=== PATIENT | female | born 1990 | race Caucasian/White ===

== ENCOUNTER → 2020-05-25 11:18 | Observation (INO) | END | disposition home or self-care (01) | LOC: 1NENULAB | PROVIDERS: ADMIT Advanced Practice Midwife; ATTEND Advanced Practice Midwife ==

== ENCOUNTER 2020-10-13 05:32 | Inpatient (IN) ==
[2020-10-13] MEDS ORDERED: Famotidine 20 MG/2 ML VIAL IVP PRN (05:47)
[2020-10-13] MEDS ORDERED: Metoclopramide 10 MG/2 ML VIAL IVP PRN ×2 (05:47→11:17)
[2020-10-13] MEDS ORDERED: Naloxone 0.4 MG/ML INJ IVP PRN (05:47)
[2020-10-13] MEDS ORDERED: ceFAZolin 2,000 MG in 0.9 % Sodium Chloride 100 ML IVPB ONE (05:50)
[2020-10-13] MEDS: Ringers Solution, Lactated 1,000 ML IVC SCH ×2 (06:13→07:43)
[2020-10-13 06:26] LABS: Basophils # 0.1 K/mcL (0.0-0.2); Basophils % 0.5 %; Eosinophils # 0.2 K/mcL (0.0-0.6); Hematocrit 35.9 % (35.3-44.9); Hemoglobin 11.5 g/dL (11.5-15.4); Lymphocytes % 24.3 %; Mean Corpuscular Hemoglobin 29.2 pg (28.0-33.3); Mean Corpuscular Volume 91.1 fL (83.0-100.0); Mean Platelet Volume 8.6 fL (9.4-12.4); Monocytes % 5.9 %; Platelet Count 376 K/mcL (140-400); Red Blood Count 3.94 M/mcL (3.82-4.97); Red Cell Distribution Width 13.2 % (11.5-14.5); Segmented Neutrophils % 67.3 %; White Blood Count 16.4 K/mcL (4.3-11.1)
[2020-10-13] MEDS ORDERED: *HR* FentaNYL (PF) 100 MCG/2 ML VIAL IVP PRN (07:36)
[2020-10-13] MEDS ORDERED: Promethazine 6.25 MG in Water for inj. (sterile) 20 ML IVPB PRN (07:36)
[2020-10-13] MEDS ORDERED: *HR* OxyCODONE Immed Rel 5 MG TABLET PO PRN ×2 (07:36→11:17)
[2020-10-13] MEDS ORDERED: *HR* Phenylephrine 10 MG/ML VIAL ONE (07:45)
[2020-10-13] MEDS ORDERED: Ondansetron 4 MG/2 ML VIAL ONE (07:45)
[2020-10-13] MEDS ORDERED: Oxytocin 20 units/ LR 1000 mL 20 UNIT/1,000 ML BAG IVC ONE ×2 (07:50→09:04)
[2020-10-13] MEDS ORDERED: Acetaminophen IV 1,000 MG/100 ML BAG IVPB ONE (08:54)
[2020-10-13] MEDS ORDERED: Lidocaine -MPF 1% 5 ML AMPUL ONE (09:19)
[2020-10-13] MEDS ORDERED: Bupivacaine-MPF 0.25% 10 ML VIAL ONE (09:19)
[2020-10-13] MEDS ORDERED: Ropivacaine/PF 0.2% 20 ML VIAL ONE (09:19)
[2020-10-13 09:42] LABS: Amphetamine Screen,Urine Negative ng/mL (Cutoff=1000); Barbiturate Screen,Urine Negative ng/mL (Cutoff=200); Benzodiazepines Screen,Urine Negative ng/mL (Cutoff=200); Cannabinoid Screen,Urine Negative ng/mL (Cutoff = 50); Cocaine Screen,Urine Negative ng/mL (Cutoff= 300); Opiate Screen,Urine Negative ng/mL (Cutoff=300); Phencyclidine Screen,Urine Negative ng/mL (Cutoff=25)
[2020-10-13] MEDS ORDERED: Oxytocin 20 units/ LR 1000 mL 20 UNIT/1,000 ML BAG IVC SCH (11:17)
[2020-10-13] MEDS ORDERED: Acetaminophen 325 MG TABLET PO PRN (11:17)
[2020-10-13] MEDS ORDERED: Sennosides 8.6 MG TABLET PO PRN (11:17)
[2020-10-13] MEDS ORDERED: Simethicone 80 MG TAB.CHEW PO PRN (11:17)
[2020-10-13] MEDS: Ibuprofen 600 MG TABLET PO PRN ×2 (13:18→20:53)
[2020-10-13] MEDS: *HR* OxyCODONE/APAP 5/325 TABLET PO PRN (16:50)
[2020-10-14] MEDS: Ibuprofen 600 MG TABLET PO PRN (02:16)
[2020-10-14] MEDS ORDERED: Ringers Solution, Lactated 0 ML ONE (03:19)
[2020-10-14 07:39] VITALS: BP 120/65
[2020-10-14] MEDS: *HR* OxyCODONE/APAP 5/325 TABLET PO PRN (07:52)
[2020-10-14] MEDS ORDERED: Prenatal Vit/FA 1 EACH TABLET PO SCH (09:00)
== END 2020-10-14 10:49 | disposition home or self-care (01) | DRG 788 ==
LOC: 1NENULAB 05:32 → 1NENUOBS 11:02
PROVIDERS: ADMIT Obstetrics & Gynecology; ATTEND Obstetrics & Gynecology